=== PATIENT | male | born 1950 | race Caucasian/White ===

== ENCOUNTER 2016-07-12 12:53 | Emergency (ER) | payer OTHER ==
[~2016-07-12] VITALS: Ht 167.6 cm; Wt 86.7 kg
[~2016-07-12 12:53] MED LIST: ASPI-232 PO; LISI-461 PO
[2016-07-12 13:01] VITALS: TEMP 37; Ht 167.6 cm; Wt 86.7 kg
[2016-07-12 13:05] VITALS: O2SAT 96
[2016-07-12 13:22] LABS: BASO % 0.1 %; BASO ABS # 0.01 K/uL (0-0.2); COMPLETE YES; EOS % 0.6 %; HEMATOCRIT 47.8 % (42-52); IG% 0.1 %; LYMPH % 14.7 %; MEAN CELL VOLUME 87.7 fL (80-100); MEAN CORPUSCULAR HEMOGLOBIN 29.7 pg (25-34); MEAN CORPUSCULAR HGB CONC 33.9 g/dl (32-36); MONO % 8.4 %; NEUT % 76.1 %; PLATELET COUNT 131 K/uL (130-400); RED BLOOD COUNT 5.45 M/uL (4.7-6.1); WHITE BLOOD COUNT 6.81 K/uL (4.8-10.8)
--- NOTE | 2016-07-12 13:30 | DIAGNOSTIC IMAGING REPORT ---
SINGLE VIEW CHEST CLINICAL HISTORY: Atypical chest pain. Fever. Sepsis. FINDINGS: An AP, portable, upright chest radiograph is obtained. No prior studies are available for comparison at the time of dictation. The examination is degraded by portable technique and patient rotation. The cardiomediastinal silhouette is normal for projection. There is left basilar atelectasis. No airspace consolidation or large pleural effusion is identified. No pneumothorax is seen. The bony thorax is grossly intact. IMPRESSION: No acute cardiopulmonary abnormality. Electronically signed by: Maynor Graves M.D. 07/12/2016 1:28 PM Dictated Date/Time: 07/12/2016 1:27 PM
[2016-07-12 13:43] LABS: BLOOD UREA NITROGEN 18 mg/dl (7-18); CALCIUM 9.1 mg/dl (8.5-10.1); CARBON DIOXIDE 28 mmol/L (21-32); CHLORIDE 104 mmol/L (98-107); GLUCOSE 180 mg/dl (70-99); POTASSIUM 3.9 mmol/L (3.5-5.1); SODIUM 140 mmol/L (136-145)
--- NOTE | 2016-07-12 14:33 | EMERGENCY ROOM VISIT NOTE ---
History Report prepared by Sonya: Pam Quiñones Under the Supervision of: Dr. Kike Peres D.O. First contact with patient: 13:06 Chief Complaint: CHEST PAIN Stated Complaint: CHEST PAIN Nursing Triage Summary: Triage note: Pt reports "my left chest has been hurting on and off for a couple days, when i get up from laying down it feels like it stiffens up, i don't think it is my heart." History of Present Illness The patient is a 65 year old male who presents to the Emergency Room with complaints of intermittent left sided chest pain that began a few days ago. He currently rates his discomfort as a 2/10 in severity and describes his pain as a cramping pain. The patient notes that when he woke up a few days ago he twisted oddly, noting the cramping pain. He states that he additionally has had left abdominal pain as well. The patient notes increased pain with certain movements. Source of History: patient Onset: a few days ago Position: chest (left) Symptom Intensity: 2/10 Quality: cramping Timing: intermittent Modifying Factors (Worsening): movement (certain) Associated Symptoms: + abdominal pain (left sided) Review of Systems See HPI for pertinent positives & negatives. A total of 10 systems reviewed and were otherwise negative. Past Medical & Surgical Medical Problems: (1) No Known Active Medical Problems Family History No pertinent family history Social History Smoking Status: Never Smoker Marital Status: Occupation Status: disabled Current/Historical Medications Scheduled Aspirin (Aspir-81), 81 MG PO DAILY Lisinopril (Zestril), 10 MG PO DAILY Allergies Coded Allergies: No Known Allergies (Unverified , 07/12/16) Physical Exam Vital Signs Date Time Temp Pulse Resp B/P Pulse Ox O2 Delivery O2 Flow Rate FiO2 07/12/16 14:04 97 16 121/95 95 Room Air 07/12/16 13:10 109 07/12/16 13:05 96 Room Air 07/12/16 13:01 37.0 112 18 152/89 96 Room Air Physical Exam CONSTITUTIONAL/VITAL SIGNS: Reviewed / noted above. GENERAL: Non-toxic in appearance. INTEGUMENTARY: Warm, dry, and Humphrey. HEAD: Normocephalic. EYES: without scleral icterus or trauma. ENT/OROPHARYNX: clear and moist. LYMPHADENOPATHY/NECK: Is supple without lymphadenopathy or meningismus. RESPIRATORY: Lungs clear and equal. CARDIOVASCULAR: Regular rate and rhythm. GI/ABDOMEN: Soft and nontender. No organomegaly or pulsatile mass. No rebound or guarding. Normal bowel sounds. EXTREMITIES: Warm and well perfused. BACK: No CVA tenderness. NEUROLOGICAL: Intact without focal deficits. PSYCHIATRIC: normal affect. MUSCULOSKELETAL: Normally developed with good muscle tone. Medical Decision & Procedures ER Provider Diagnostic Interpretation: X ray results and stated below per my interpretation and radiology interpretation. SINGLE VIEW CHEST CLINICAL HISTORY: Atypical chest pain. Fever. Sepsis. FINDINGS: An AP, portable, upright chest radiograph is obtained. No prior studies are available for comparison at the time of dictation. The examination is degraded by portable technique and patient rotation. The cardiomediastinal silhouette is normal for projection. There is left basilar atelectasis. No airspace consolidation or large pleural effusion is identified. No pneumothorax is seen. The bony thorax is grossly intact. IMPRESSION: No acute cardiopulmonary abnormality. Electronically signed by: Maynor Graves M.D. 07/12/2016 1:28 PM Dictated Date/Time: 07/12/2016 1:27 PM Laboratory Results 07/12/16 13:10 Red Blood Count 5.45, Mean Corpuscular Volume 87.7, Mean Corpuscular Hemoglobin 29.7, Mean Corpuscular Hemoglobin Concent 33.9, Mean Platelet Volume 10.0, Neutrophils (%) (Auto) 76.1, Lymphocytes (%) (Auto) 14.7, Monocytes (%) (Auto) 8.4, Eosinophils (%) (Auto) 0.6, Basophils (%) (Auto) 0.1, Neutrophils # (Auto) 5.18, Lymphocytes # (Auto) 1.00, Monocytes # (Auto) 0.57, Eosinophils # (Auto) 0.04, Basophils # (Auto) 0.01 07/12/16 13:10 Test 07/12/16 13:10 White Blood Count 6.81 K/uL (4.8-10.8) Red Blood Count 5.45 M/uL (4.7-6.1) Hemoglobin 16.2 g/dL (14.0-18.0) Hematocrit 47.8 % (42-52) Mean Corpuscular Volume 87.7 fL (80-100) Mean Corpuscular Hemoglobin 29.7 pg (25-34) Mean Corpuscular Hemoglobin Concent 33.9 g/dl (32-36) Platelet Count 131 K/uL (130-400) Mean Platelet Volume 10.0 fL (7.4-10.4) Neutrophils (%) (Auto) 76.1 % Lymphocytes (%) (Auto) 14.7 % Monocytes (%) (Auto) 8.4 % Eosinophils (%) (Auto) 0.6 % Basophils (%) (Auto) 0.1 % Neutrophils # (Auto) 5.18 K/uL (1.4-6.5) Lymphocytes # (Auto) 1.00 K/uL (1.2-3.4) Monocytes # (Auto) 0.57 K/uL (0.11-0.59) Eosinophils # (Auto) 0.04 K/uL (0-0.5) Basophils # (Auto) 0.01 K/uL (0-0.2) RDW Standard Deviation 43.7 fL (36.4-46.3) RDW Coefficient of Variation 13.7 % (11.5-14.5) Immature Granulocyte % (Auto) 0.1 % Immature Granulocyte # (Auto) 0.01 K/uL (0.00-0.02) Prothrombin Time 11.0 SECONDS (9.0-12.0) Prothromb Time International Ratio 1.0 (0.9-1.1) Activated Partial Thromboplast Time 25.0 SECONDS (21.0-31.0) Partial Thromboplastin Ratio 1.0 Anion Gap 8.0 mmol/L (3-11) Est Creatinine Clear Calc Drug Dose 55.7 ml/min Estimated GFR () 61.5 Estimated GFR (Non- 53.1 BUN/Creatinine Ratio 13.0 (10-20) Calcium Level 9.1 mg/dl (8.5-10.1) Troponin I < 0.015 ng/ml (0-0.045) Lipase 203 U/L (73-393) Laboratory results as stated above per my review. ECG Indication: chest pain Rate (beats per minute): 102 Rhythm: sinus tachycardia Findings: no acute ischemic change, no ectopy ED Course 1308: Previous medical records were reviewed. The patient was evaluated in room B2. A complete history and physical examination was performed. 1434: I reevaluated the patient and he is resting comfortably. I discussed the exam findings with him and I discussed the treatment plan. He verbalized complete understanding and agreement. He is ready to go home. Medical Decision the differential was considered includes acute myocardial infarction, acute coronary syndrome, myocarditis, pericarditis, pericardial effusions /tamponad, esophageal perforation, thoracic aortic dissection, pulmonary embolism, pneumonia, pneumothorax, pancreatitis, shingles, acute cholecystitis, perforated abdominal viscus. This is a 65-year-old male who presents to the ED with a chief complaint of left -sided chest cramps. The patient states that this started a couple of days ago when he awoke from sleep and twisted to get out of bed. He states that he has had these cramps intermittently since that time. He denies being exertional. They're clearly related to rotating and certain movements. He came in to make sure it wasn't his heart. He does not think it is hard. His vital signs are stable. His physical exam does not reveal any obvious reproducible his comfort. He is currently not having any pain at this time. An EKG reveals a sinus tach. CBC is normal as is the PRP. Troponin and lipase are negative. The patient was told the results of tests. He is felt to be stable for discharge and outpatient follow-up. Impression Primary Impression: Chest wall pain Scribe Attestation The scribe's documentation has been prepared under my direction and personally reviewed by me in its entirety. I confirm that the note above accurately reflects all work, treatment, procedures, and medical decision making performed by me. Departure Information Dispostion Home / Self-Care Referrals Washington Ribeiro M.D. (MEDICAL) (PCP) Forms HOME CARE DOCUMENTATION FORM, IMPORTANT VISIT INFORMATION Patient Instructions ED Chest Pain [facility], ED Strain Chest Wall Additional Instructions Follow-up with your doctor for further care and evaluation in 1-2 days. Return to the emergency department for worsening or new symptoms or any concerns. You have been examined and treated today on an emergency basis only. This is not a substitute for, or an effort to provide, complete comprehensive medical care. It is impossible to recognize and treat all injuries or illnesses in a single emergency department visit. It is therefore important that you follow up closely with your doctor. Call as soon as possible for an appointment.
[2016-07-12 15:08] VITALS: BP 132/89; PULSE 88; O2SAT 94
== END 2016-07-12 15:08 | disposition home or self-care (01) ==
LOC: C.EDB 12:54
DX: R07.89 Other chest pain (principal); Z79.82 Long term (current) use of aspirin